=== PATIENT | male | born 1980 | race American Indian/Alaskan Native ===

== ENCOUNTER 2018-06-17 10:56 | Emergency (ER) | payer MEDICAID ==
--- NOTE | 2018-06-17 12:14 | Diagnostic Imaging Report ---
Left foot 3 views Indication: Trauma Comparison: none Findings: There is slight osseous prominence of the dorsal metatarsal-phalangeal region on the lateral views. Otherwise no evidence of acute fracture or focal soft tissue swelling. Tiny plantar calcaneal spur is noted. Impression: Slight osseous prominence of the dorsal metatarsal-phalangeal region on the lateral views probably projectional. Otherwise no evidence of acute fracture. No focal soft tissue swelling. In the setting of trauma, if clinical symptoms persist and there is continued concern for an occult fracture, follow up exams in 5-7 days is suggested.
[2018-06-17 13:49] LABS: INF A SCREEN NEG FOR INF A; INF B SCREEN NEG FOR INF B
--- NOTE | 2018-06-21 16:35 | ER Physician Documentation ---
DATE OF SERVICE: 06/17/2018 CHIEF COMPLAINT: Left great toe pain and sore throat. HISTORY OF PRESENT ILLNESS: A 38-year-old male who presented with complaint of sore throat and exudate on his left tonsillar area and while taking a shower this morning injured his left great toe. He is coming for both complaints. PAST MEDICAL HISTORY: Unremarkable. SOCIAL HISTORY: Unremarkable. REVIEW OF SYSTEMS: Positive for sore throat with exudate as well left great toe pain. REVIEW OF SYSTEMS: negative for fevers, chills, nausea, vomiting, diarrhea or constipation. PHYSICAL EXAMINATION: GENERAL: This is an overweight male, in no apparent distress. LUNGS: Clear to auscultation bilaterally. CARDIOVASCULAR: Regular rate and rhythm. Cervical lymph nodes are little full. Oropharynx injected with exudate in the left side. No evidence of abscess present. Airway is patent. EXTREMITIES: Left great toe is swollen. DIAGNOSTIC DATA: X-rays read by me included a distal phalanx fracture with minimal displacement. The patient was placed in a dalila taping mechanism with avoidance of pressure on the left great toe fracture. I personally did this. I placed some cotton between the 2 toes. The left great toe and the left second toe and dalila taped to [place]. With respect to treatment of a sore throat. I gave him 1 gram IM Rocephin and 60 mg IM of Toradol and sent flu swab off that was read as negative. I did not see any reason to do a strep test since clinically he has strep throat. PROCEDURE: The patient was placed in a dalila taping mechanism with avoidance of pressure on the left great toe fracture. I personally did this. I placed some cotton between the 2 toes. The left great toe and the left second toe and dalila taped to [place]. Neurovascular exam intact after splinting. IMPRESSION AND PLAN: Strep throat. Treatment with penicillin 500 mg p.o. b.i.d. #20 and treatment of left great toe fracture with dalila taping. He is to follow up with Ortho. He was given a CD for followup. JOB# [id number] [facility]
== END 2018-06-17 12:30 | disposition home or self-care (01) ==
LOC: ER 10:56
DX: S92.422A Displaced fracture of distal phalanx of left great toe, initial encounter for closed fracture (principal); J02.0 Streptococcal pharyngitis; X58.XXXA Exposure to other specified factors, initial encounter; Y93.89 Activity, other specified; Y92.89 Other specified places as the place of occurrence of the external cause; Y99.8 Other external cause status
CPT/HCPCS: 99284; 96372 ×2; 73630; 87804 ×2; J1885; J0696; Z7502

== ENCOUNTER 2019-02-23 13:24 | Emergency (ER) | payer MEDICAID ==
--- NOTE | 2019-02-23 13:43 | ED Physician Chart ---
ED Chief Complaint/HPI - Patient Information Date Seen:: 02/23/19 Time Seen:: 13:37 Chief Complaint:: rt ankle pain History of Present Illness:: 38 yr old male with hx of rt ankle sprain who twisted rt ankle as he was stepping down from the sidewalk Allergies:: Allergies Allergy/AdvReac Type Severity Reaction Status Date / Time tetracycline Allergy Verified 06/17/18 11:27 ED Review of Systems - Review of Systems General/Constitutional: No fever, No chills, No weight loss, No weakness, No diaphoresis, No edema, No loss of appetite Skin: No skin lesions, No rash, No bruising Head: No headache, No light-headedness Eyes: No loss of vision, No pain, No diplopia ENT: No earache, No nasal drainage, No sore throat, No tinnitus Neck: No neck pain, No swelling, No thyromegaly, No stiffness, No mass noted Cardio Vascular: No chest pain, No palpitations, No PND, No orthopnea, No edema Pulmonary: No SOB, No cough, No sputum, No wheezing GI: No nausea, No vomiting, No diarrhea, No pain, No melena, No hematochezia, No constipation, No hematemesis G/U: No dysuria, No frequency, No hematuria Musculoskeletal: Bone or joint pain, Other (rt ankle lateral tenderness) Endocrine: No polyuria, No polydipsia Psychiatric: No prior psych history, No depression, No anxiety, No suicidal ideation Hematopoietic: No bruising, No lymphadenopathy Allergic/Immuno: No urticaria, No angioedema Neurological: No syncope, No focal symptoms, No weakness, No paresthesia, No headache, No seizure, No dizziness, No confusion, No vertigo ED Past Medical History - Past Medical History Past Medical History: No significant medical hx Family Medical History - Family Member Father Ethnicity: ED Physical Exam - Physical Examination General/Constitutional: Awake, Well-developed, well-nourished, Alert, No distress, GCS 15, Non-toxic appearing, Ambulatory Head: Atraumatic Eyes: Lids, conjuctiva normal, PERRL, EOMI Skin: Nl inspection, No rash, No skin lesions, No ecchymosis, Well hydrated, No lymphadenopathy ENMT: External ears, nose nl, Nasal exam nl, Lips, teeth, gums nl Neck: Nontender, Full ROM w/o pain, No JVD, No nuchal rigidity, No bruit, No mass, No stridor Respiratory: Nl effort/Exclusion, Clear to Auscultation, No Wheeze/Rhonchi/Rales Cardio Vascular: RRR, No murmur, gallop, rubs, NL S1 S2 GI: No tenderness/rebounding/guarding, No organomegaly, No hernia, Normal BS's, Nondistended, No mass/bruits, No McBurney tenderness : No CVA tenderness Extremities: No tenderness or effusion, Full ROM, normal strength in all extremities, No edema, Normal digits & nails Other Extremities comments:: mild tenderness lat ankle rt Neuro/Psych: Alert/oriented, DTR's symmetric, Normal sensory exam, Normal motor strength, Judgement/insight normal, Mood normal, Normal gait, No focal deficits Misc: Normal back, No paraspinal tenderness ED Assessment - Assessment General Assessment: rt ankle deepak ED Septic Shock - . Is Septic Shock (SBP<90, OR Lactate>4 mmol\L) present?: No ED Reassessment (Disposition) - Reassessment Reassessment:: rt ankle sprain - Aftercare/Follow up Instructions Aftercare/Follow-Up Instructions:: Counseled pt regarding lab results/diagnosis & need follow up - Patient Disposition Discharge/Transfer:: Home Condition at Disposition:: Stable
== END 2019-02-23 14:15 | disposition left against medical advice (07) ==
LOC: ER 13:24
DX: S93.401A Sprain of unspecified ligament of right ankle, initial encounter (principal); Z88.1 Allergy status to other antibiotic agents; X50.1XXA Overexertion from prolonged static or awkward postures, initial encounter; Y93.89 Activity, other specified; Y92.89 Other specified places as the place of occurrence of the external cause; Y99.8 Other external cause status
CPT/HCPCS: Z7502